=== PATIENT | male | born 1980 | race Caucasian/White ===

== ENCOUNTER 2017-06-29 19:25 | Emergency (ER) | payer MEDICAID, OTHER ==
[2017-06-29] MEDS: METHYLPREDNISOLONE 125 MG INJ IV (22:13)
[2017-06-29] MEDS: ALBUTEROL 0.083% (NEB) 2.5 MG/3 ML AMP HHN ×2 (22:14→22:49)
[2017-06-29] MEDS: IPRATROPIUM (NEB) 0.5 MG/2.5 ML AMP HHN ×2 (22:14→22:49)
== END 2017-06-29 23:53 | disposition home or self-care (01) ==
LOC: FTE 19:25
DX: J45.909 Unspecified asthma, uncomplicated (principal); Z87.891 Personal history of nicotine dependence
CPT/HCPCS: 94644; 94664; 96374; 99284-25

== ENCOUNTER 2017-10-03 20:18 | Emergency (ER) | payer MEDICAID | END 2017-10-03 20:36 | disposition home or self-care (01) | LOC: E/R 20:18 | DX: H60.332 Swimmer's ear, left ear (principal); J45.909 Unspecified asthma, uncomplicated | CPT/HCPCS: 99283; Z7502 ==

== ENCOUNTER 2018-07-03 20:13 | Emergency (ER) | payer MEDICAID ==
[2018-07-03] MEDS: HYDROCODONE/APAP (10/325) TAB PO (22:04)
[2018-07-03] MEDS: DIPHTH/TET/ACEL PERTUSS (ADULT) 0.5 ML VIAL IM* (22:05)
[2018-07-04] MEDS: BACITRACIN 0.9 GM OINT TOP (00:30)
== END 2018-07-04 00:43 | disposition home or self-care (01) ==
LOC: FTE 07-04 00:43
DX: S61.212A Laceration without foreign body of right middle finger without damage to nail, initial encounter (principal); J45.909 Unspecified asthma, uncomplicated; F17.210 Nicotine dependence, cigarettes, uncomplicated; W23.0XXA Caught, crushed, jammed, or pinched between moving objects, initial encounter; Y92.9 Unspecified place or not applicable; Z23 Encounter for immunization
CPT/HCPCS: 12001; 73130-RT; 90471; 90715; 99283-25